=== PATIENT | female | born 1950 | race Caucasian/White ===

== ENCOUNTER → 2020-06-17 17:01 | Outpatient (CLI) | payer MEDICARE, SELFPAY ==
--- NOTE | 2020-06-17 | LES_PTH ---
PATIENT: KARLA BRAY LOC: [facility] U#:[id number] AGE/SX: 75/F ROOM: RE06/17/[address]: Dr. Rob Campbell MD : 1950 BED: DIS: SPEC #: [id number] RECD: 06/17/20 17:45 STATUS: MARIIA KIMMIE #: [id number] KIMBERLY: 06/17/20 00:[address]: Rob Campbell DEPT: SURGICAL PATHOLOGY RECD BY: Hudson Do ENTERED: 06/18/20 07:52 SP TYPE: Lesion OTHR DR: Dr. Summer Abreu MD Tissues: A - Abdomen, NOS B - Abdomen, NOS C - Thigh, NOS Procedures: Surgery Specimen Level IV HEADER OPERATION: Intradermal lesion excision PRE-OP DIAGNOSIS: Lesions increasing in size TISSUE SUBMITTED: A - Left lateral abdominal wall, B - Right lateral abdomen, C - Proximal thigh MICROSCOPIC DIAGNOSIS A. Left lateral abdominal wall lesion, biopsy: Benign vascular proliferation, consistent with capillary hemangioma. B. Right lateral abdominal lesion, biopsy: Benign vascular proliferation, consistent with hemangioma. C. Proximal thigh lesions, biopsy: Intradermal nevus, one fragment. Benign vascular proliferation, consistent with capillary hemangioma x3 fragments. SJ:tung 06/21/20 MICROSCOPIC DESCRIPTION Slides are reviewed. GROSS DESCRIPTION A - Received in fixative is one container labeled with the patient's name and designated left lateral abdominal wall. The specimen consists of a shave biopsy of garcia-white skin measuring 0.8 x 0.3 x 0.1 cm. The specimen is inked and submitted entirely in one cassette. B - Received in fixative is one container labeled with the patient's name and designated right lateral abdomen. The specimen consists of a shave biopsy of garcia-white skin measuring 0.5 x 0.5 x 0.1 cm. The specimen is inked and submitted entirely in one cassette. It will be bisected at the time of embedding. C - Received in fixative is one container labeled with the patient's name and designated proximal thigh. The specimen consists of four fragments of garcia-white to brown skin measuring 0.2-0.3 cm in greatest dimension. Each piece is inked and submitted entirely in one cassette. / DEVYN:tung 06/18/20 TC:1 CPT: 97089 x3
[2020-06-17 16:14] VITALS: BMI 28.4
== END ==
PROVIDERS: PCP Family Medicine; Referring Provider Surgery; Visit Provider Surgery
DX: L98.8 Other specified disorders of the skin and subcutaneous tissue (principal)
CPT/HCPCS: 88305